=== PATIENT | female | born 1940 | race Two or more races ===

== ENCOUNTER 2017-09-19 11:05 | Outpatient (CLI) | payer OTHER ==
[~2017-09-19 11:05] MED LIST: BONIVA3 MG/3 ML/; CLONAZEPAM0.5 MG; EMBREL; LIPITOR20 MG; [UNRECOGNIZED DRUG - OTHER]
== END 2017-09-19 11:11 | disposition home or self-care (01) ==
LOC: RAD 11:05
DX: J44.1 Chronic obstructive pulmonary disease with (acute) exacerbation (principal)

== ENCOUNTER 2018-05-21 11:46 | Outpatient (CLI) | payer OTHER ==
[~2018-05-21] VITALS: Ht 157.5 cm; Wt 49.9 kg
== END 2018-05-21 12:00 | disposition home or self-care (01) ==
LOC: OFIC 805 11:46
DX: J38.4 Edema of larynx (principal); R49.0 Dysphonia; K21.0 Gastro-esophageal reflux disease with esophagitis; J34.0 Abscess, furuncle and carbuncle of nose

== ENCOUNTER 2018-05-21 13:38 | Outpatient (CLI) | payer OTHER | END 2018-05-21 14:03 | disposition home or self-care (01) | LOC: TOM 13:38 | DX: J43.8 Other emphysema (principal) ==

== ENCOUNTER 2019-11-23 13:36 | Outpatient (CLI) | payer OTHER | END 2019-11-23 13:47 | disposition home or self-care (01) | LOC: NUCLEAR 13:36 | PROVIDERS: ATTEND Internal Medicine | DX: I82.403 Acute embolism and thrombosis of unspecified deep veins of lower extremity, bilateral (principal) ==

== ENCOUNTER → 2019-12-01 | Outpatient (CLI) | payer OTHER | END | disposition home or self-care (01) | LOC: OFIC 805 11:45 | PROVIDERS: ATTEND Otolaryngology | DX: J38.4 Edema of larynx (principal); R49.0 Dysphonia; K20.8 Other esophagitis; J34.0 Abscess, furuncle and carbuncle of nose ==

== ENCOUNTER 2019-12-09 16:53 | Outpatient (CLI) | payer OTHER | END 2019-12-09 17:20 | disposition home or self-care (01) | LOC: OFIC 805 16:53 | PROVIDERS: ATTEND Otolaryngology | DX: J38.4 Edema of larynx (principal); R49.0 Dysphonia; J34.0 Abscess, furuncle and carbuncle of nose ==

== ENCOUNTER 2019-12-21 09:06 | Outpatient (CLI) | payer OTHER | END 2019-12-21 09:12 | disposition home or self-care (01) | LOC: RAD 09:06 | PROVIDERS: ATTEND Obstetrics & Gynecology | DX: R07.89 Other chest pain (principal); J43.8 Other emphysema ==

== ENCOUNTER 2020-02-01 10:03 | Outpatient (CLI) | payer OTHER | END 2020-02-01 10:15 | disposition home or self-care (01) | LOC: NUCLEAR 10:03 | PROVIDERS: ATTEND Internal Medicine | DX: I82.402 Acute embolism and thrombosis of unspecified deep veins of left lower extremity (principal); I87.2 Venous insufficiency (chronic) (peripheral) ==

== ENCOUNTER 2020-03-30 07:41 | Outpatient (CLI) | payer OTHER | END 2020-03-30 07:46 | disposition home or self-care (01) | LOC: LAB 07:41 | PROVIDERS: ATTEND Internal Medicine Rheumatology | DX: M06.4 Inflammatory polyarthropathy (principal); L40.59 Other psoriatic arthropathy ==

== ENCOUNTER 2020-03-30 08:16 | Outpatient (CLI) | payer OTHER | END 2020-03-30 08:27 | disposition HB | LOC: SONOGRAMA 08:16 | DX: E04.2 Nontoxic multinodular goiter (principal); E55.9 Vitamin D deficiency, unspecified; E78.2 Mixed hyperlipidemia; F34.89 Other specified persistent mood disorders; F41.1 Generalized anxiety disorder; I10 Essential (primary) hypertension; I87.2 Venous insufficiency (chronic) (peripheral); J38.1 Polyp of vocal cord and larynx; K21.9 Gastro-esophageal reflux disease without esophagitis; L40.8 Other psoriasis; M99.53 Intervertebral disc stenosis of neural canal of lumbar region; M32.10 Systemic lupus erythematosus, organ or system involvement unspecified; R80.0 Isolated proteinuria ==

== ENCOUNTER 2021-02-20 10:02 | Outpatient (CLI) | payer OTHER | END 2021-02-20 10:09 | disposition home or self-care (01) | LOC: SONOGRAMA 10:02 | PROVIDERS: ATTEND Internal Medicine Endocrinology, Diabetes & Metabolism | DX: E04.8 Other specified nontoxic goiter (principal); R07.89 Other chest pain; M15.0 Primary generalized (osteo)arthritis; M06.4 Inflammatory polyarthropathy; M41.05 Infantile idiopathic scoliosis, thoracolumbar region ==

== ENCOUNTER 2021-09-20 08:31 | Emergency (ER) | payer OTHER ==
[~2021-09-20] VITALS: Ht 149.9 cm; Wt 52.2 kg
[2021-09-20] MEDS ORDERED: SYNTHROID75 MCG PO (08:49)
[2021-09-20] MEDS ORDERED: FENOFIBRIC ACID45 MG PO (08:50)
[2021-09-20] MEDS ORDERED: SIMVASTATIN40 MG PO (08:50)
[2021-09-20] MEDS ORDERED: TREMFYA100 MG/11 SQ (08:51)
== END 2021-09-20 11:40 | disposition home or self-care (01) ==
LOC: ER 08:31
DX: U07.1 COVID-19 (principal)

== ENCOUNTER 2022-02-14 10:35 | Outpatient (CLI) | payer OTHER ==
[~2022-02-14 10:35] MED LIST changes: +FENOFIBRIC ACID45 MG PO; +SIMVASTATIN40 MG PO; +SYNTHROID75 MCG PO; +TREMFYA100 MG/11 SQ
== END 2022-02-14 15:36 | disposition home or self-care (01) ==
LOC: MRI 10:35
PROVIDERS: ATTEND Internal Medicine
DX: J01.90 Acute sinusitis, unspecified (principal); M25.469 Effusion, unspecified knee
CPT/HCPCS: 73721

== ENCOUNTER → 2022-02-18 | Outpatient (CLI) | payer OTHER | END | disposition home or self-care (01) | LOC: NUCLEAR 08:43 | PROVIDERS: ATTEND Internal Medicine Rheumatology | DX: I82.402 Acute embolism and thrombosis of unspecified deep veins of left lower extremity (principal); I82.401 Acute embolism and thrombosis of unspecified deep veins of right lower extremity ==

== ENCOUNTER 2022-06-28 07:00 | Outpatient (CLI) | payer OTHER | END 2022-06-28 07:04 | disposition home or self-care (01) | LOC: NUCLEAR 07:00 | PROVIDERS: ATTEND Internal Medicine | DX: I11.9 Hypertensive heart disease without heart failure (principal); I35.1 Nonrheumatic aortic (valve) insufficiency; G45.9 Transient cerebral ischemic attack, unspecified; E78.2 Mixed hyperlipidemia; R07.9 Chest pain, unspecified; I20.8 Other forms of angina pectoris | CPT/HCPCS: 78452; 93017; A9500; J0153 ==

== ENCOUNTER 2022-11-21 06:59 | Outpatient (CLI) | payer OTHER | END 2022-11-21 07:00 | disposition home or self-care (01) | LOC: LAB 06:59 | PROVIDERS: ATTEND Neuromusculoskeletal Medicine & OMM | DX: E78.00 Pure hypercholesterolemia, unspecified (principal); E78.1 Pure hyperglyceridemia; M62.9 Disorder of muscle, unspecified; G62.9 Polyneuropathy, unspecified; R20.2 Paresthesia of skin; E11.9 Type 2 diabetes mellitus without complications; E22.1 Hyperprolactinemia; D64.9 Anemia, unspecified; N39.0 Urinary tract infection, site not specified; E03.8 Other specified hypothyroidism ==

== ENCOUNTER 2022-11-21 07:29 | Outpatient (CLI) | payer OTHER | END 2022-11-21 07:35 | disposition home or self-care (01) | LOC: RAD 07:29 | PROVIDERS: ATTEND Internal Medicine | DX: M51.26 Other intervertebral disc displacement, lumbar region (principal); M51.36 Other intervertebral disc degeneration, lumbar region; J44.1 Chronic obstructive pulmonary disease with (acute) exacerbation | CPT/HCPCS: 72148 ==

== ENCOUNTER 2023-02-03 02:04 | Emergency (ER) | payer OTHER ==
[~2023-02-03] VITALS: Ht 162.6 cm; Wt 68.0 kg
[2023-02-03 04:27] LABS: HEMATOCRIT 38.3 % (36.0-45.00); HEMOGLOBIN 12.9 g/dL (12.0-15.00); MEAN CELL VOLUME 87.5 fL (80.00-100.00); MEAN CORPUSCULAR HEMOGLOBIN 29.4 pg (27.00-32.0); MEAN CORPUSCULAR HGB CONC 33.6 g/dl (32.0-36.0); PLATELET COUNT 253 K/uL (150-450); RED BLOOD COUNT 4.38 M/uL (4.00-6.00); RED CELL DISTRIBUTION WIDTH 14.8 % (11.5-14.5)
[2023-02-03 04:43] LABS: CALCIUM 9.3 mg/dL (8.5-10.1); CREATININE SERUM 0.61 mg/dL (0.55-1.02); GFR 93.9; POTASSIUM 4.19 mEq/L (3.5-5.1)
[2023-02-03 04:56] LABS: URINE APPEARANCE Clear; URINE BACTERIA 64.2 uL (0.0-1933); URINE BILIRRUBIN Negative (NEGATIVE); URINE BLOOD Negative; URINE COLOR Yellow; URINE EPITHELIAL CELLS 7.1 uL (0.0-38.8); URINE GLUCOSE Negative (NEGATIVE); URINE LEUKOCYTE Moderate; URINE NITRATE Negative; URINE PROTEIN Trace (NEGATIVE); URINE RBC 71.9 uL (0.0-20.8); URINE WBC 290.4 uL (0.0-23.2)
[2023-02-03] MEDS ORDERED: INTESTINEX680 M1 PO (07:37)
[2023-02-03] MEDS ORDERED: PEPCID40 MG PO (07:37)
[2023-02-03] MEDS ORDERED: ONDANSETRON ODT4 MG PO (07:37)
== END 2023-02-03 10:16 ==
LOC: ER 02:04
PROVIDERS: General Practice
DX: K52.89 Other specified noninfective gastroenteritis and colitis (principal); I10 Essential (primary) hypertension
CPT/HCPCS: 36415; 96365; 96366; 96372; 99284; J2250; J2405; J3490; J7030

== ENCOUNTER 2023-02-17 07:47 | Outpatient (CLI) | payer OTHER ==
[~2023-02-17 07:47] MED LIST changes: +INTESTINEX680 M1 PO; +ONDANSETRON ODT4 MG PO; +PEPCID40 MG PO
== END 2023-02-17 07:49 | disposition home or self-care (01) ==
LOC: MRI 07:47
PROVIDERS: ATTEND Neuromusculoskeletal Medicine & OMM
DX: M50.20 Other cervical disc displacement, unspecified cervical region (principal); M50.30 Other cervical disc degeneration, unspecified cervical region
CPT/HCPCS: 72141

== ENCOUNTER 2023-03-14 09:49 | Outpatient (CLI) | payer OTHER | END 2023-03-14 09:51 | disposition home or self-care (01) | LOC: NUCLEAR 09:49 | PROVIDERS: ATTEND Internal Medicine Rheumatology | DX: M81.0 Age-related osteoporosis without current pathological fracture (principal) ==

== ENCOUNTER 2023-10-29 09:29 | Outpatient (CLI) | payer OTHER | END 2023-10-29 09:49 | disposition home or self-care (01) | LOC: MRI 09:29 | PROVIDERS: ATTEND Neuromusculoskeletal Medicine & OMM | DX: F09 Unspecified mental disorder due to known physiological condition (principal); F03.90 Unspecified dementia, unspecified severity, without behavioral disturbance, psychotic disturbance, mood disturbance, and anxiety; I72.9 Aneurysm of unspecified site; I65.1 Occlusion and stenosis of basilar artery; I65.09 Occlusion and stenosis of unspecified vertebral artery; I65.29 Occlusion and stenosis of unspecified carotid artery; Q28.2 Arteriovenous malformation of cerebral vessels | CPT/HCPCS: 70544; 70551 ==

== ENCOUNTER 2024-01-12 07:44 | Outpatient (CLI) | payer OTHER | END 2024-01-12 07:45 | disposition home or self-care (01) | LOC: NUCLEAR 07:44 | PROVIDERS: ATTEND Internal Medicine | DX: I70.90 Unspecified atherosclerosis (principal); F17.210 Nicotine dependence, cigarettes, uncomplicated ==

== ENCOUNTER 2024-01-12 09:14 | Outpatient (CLI) | payer OTHER | END 2024-01-12 09:26 | disposition home or self-care (01) | LOC: MAMO-SONO 09:14 | PROVIDERS: ATTEND Internal Medicine | DX: N60.99 Unspecified benign mammary dysplasia of unspecified breast (principal); Z12.31 Encounter for screening mammogram for malignant neoplasm of breast ==

== ENCOUNTER 2024-06-03 08:02 | Outpatient (CLI) | payer OTHER | END 2024-06-03 08:10 | disposition home or self-care (01) | LOC: SONOGRAMA 08:02 | PROVIDERS: ATTEND Internal Medicine | DX: N39.498 Other specified urinary incontinence (principal) ==

== ENCOUNTER 2024-08-24 14:07 | Outpatient (CLI) | payer OTHER | END 2024-08-24 14:13 | disposition home or self-care (01) | LOC: RAD 14:07 | PROVIDERS: ATTEND Internal Medicine | DX: M79.671 Pain in right foot (principal) ==

== ENCOUNTER 2024-08-31 12:38 | Outpatient (CLI) | payer OTHER | END 2024-08-31 12:48 | disposition home or self-care (01) | LOC: MAMO-SONO 12:38 | PROVIDERS: ATTEND Internal Medicine | DX: N60.39 Fibrosclerosis of unspecified breast (principal) ==

== ENCOUNTER → 2024-09-21 07:10 | Outpatient (CLI) | payer OTHER | END | disposition home or self-care (01) | LOC: NUCLEAR 09-07 07:00 | PROVIDERS: ATTEND Internal Medicine | DX: I20.9 Angina pectoris, unspecified (principal) | CPT/HCPCS: 78452; 93017; A9500 ==